=== PATIENT | female | born 1995 | race Caucasian/White ===

== ENCOUNTER 2017-02-16 12:24 | Emergency (ER) | payer BC ==
[2017-02-16 13:12] VITALS: BP 136/73
[2017-02-16] MEDS ORDERED: Ibuprofen TAB* 600 MG PO ONE (13:13)
--- NOTE | 2017-02-16 13:24 | UC ---
Throat Pain/Nasal Elliot HPI - HPI Summary HPI Summary: patient has had sore throat and left ear pain for the past 3 days, woke up with upset stomach and mid back pain today, has had chills and hot sweats. - History of Current Complaint Chief Complaint: UCGeneralIllness Stated Complaint: LEFT EAR PAIN, SORE THROAT Time Seen by Provider: 02/16/17 13:00 Hx Obtained From: Patient Hx Last Menstrual Period: 02/11/17 ?: No Onset/Duration: Sudden Onset, Lasting Days Severity: Moderate Associated Signs & Symptoms: Positive: Dysphagia, Sinus Discomfort - Allergies/Home Medications Allergies/Adverse Reactions: Allergies Allergy/AdvReac Type Severity Reaction Status Date / Time No Known Allergies Allergy Unverified 01/21/13 15:26 PMH/Surg Hx/FS Hx/Imm Hx Previously Healthy: Yes - Surgical History Surgical History: None Surgery Procedure, Year, and Place: pyloric stenosis surgery at 2 months old - Family History Known Family History: Negative: Cardiac Disease, Hypertension - Social History Alcohol Use: Rare Substance Use Type: None Smoking Status (MU): Current Some Day Smoker Review of Systems Constitutional: Chills, Fatigue Skin: Negative Eyes: Negative ENT: Sore Throat, Ear Ache, Nasal Discharge Respiratory: Cough Cardiovascular: Negative Gastrointestinal: Abdominal Pain - epigastric Genitourinary: Negative Motor: Negative Neurovascular: Negative Musculoskeletal: Myalgia - mid back Neurological: Negative Psychological: Negative Is Patient Immunocompromised?: No All Other Systems Reviewed And Are Negative: Yes Physical Exam Triage Information Reviewed: Yes Appearance: Well-Nourished, Ill-Appearing, Pain Distress Vital Signs: Initial Vital Signs Temp 99.6 F 02/16/17 13:08 Pulse 89 02/16/17 13:08 Resp 16 02/16/17 13:08 BP 136/73 02/16/17 13:08 Pulse Ox 100 02/16/17 13:08 Vital Signs Reviewed: Yes Eye Exam: Normal Eyes: Positive: Conjunctiva Clear ENT: Positive: Pharyngeal erythema, TM bulging - left, TM dull, TM red, Tonsillar exudate Dental Exam: Normal Neck exam: Normal Neck: Positive: Supple, Nontender, No Lymphadenopathy Respiratory Exam: Normal Respiratory: Positive: Chest non-tender, Lungs clear, Normal breath sounds Cardiovascular Exam: Normal Cardiovascular: Positive: RRR, No Murmur, Pulses Normal Abdominal Exam: Normal Bowel Sounds: Positive: Present Musculoskeletal Exam: Normal Musculoskeletal: Positive: Strength Intact, ROM Intact, No Edema Neurological Exam: Normal Psychological Exam: Normal Skin Exam: Normal Throat Pain/Nasal Course/Dx - Course Course Of Treatment: hx obtained, exam performed ,meds reviewed, left otitis media present, rapid strep and flu obtained per patient request. ibuprofen given for muscle pain. - Differential Dx/Diagnosis Differential Diagnosis/HQI/PQRI: Otitis Media, Pharyngitis, Sinusitis, URI Provider Diagnoses: left otitis media Discharge - Discharge Plan Condition: Stable Disposition: HOME Prescriptions: Amoxicillin PO (*) [Amoxicillin 875 MG (*)] 875 mg PO BID #20 tab Patient Education Materials: Otitis Media (ED) Forms: *Work Release Referrals: Non Staff,Doctor [Primary Care Provider] - Additional Instructions: 1. take the medication as prescribed. 2. Get plenty of rest and increase fluid intake 3. continue with 400 -600 mg of ibuprofen for pain/ fever. 4. follow up as needed.
== END 2017-02-16 13:33 | disposition home or self-care (01) ==
LOC: UCCORT 12:24
DX: H66.92 Otitis media, unspecified, left ear (principal); Z72.0 Tobacco use
CPT/HCPCS: 87502; 87651; 99202; A9270-GY; G0463

== ENCOUNTER 2017-03-22 11:14 | Emergency (ER) | payer BC ==
[2017-03-22 12:49] VITALS: BP 123/71
--- NOTE | 2017-03-22 13:53 | UC ---
UC General HPI - HPI Summary HPI Summary: right side of face and mouth/lip swollen since yesterday - took 2 25mg benadryl without relief. no new meds, foods, detergent. denies any other symptoms - no dental pain or earache at this time - History of Current Complaint Chief Complaint: UCGeneralIllness Stated Complaint: RED & SWOLLEN LIP AND FACE Time Seen by Provider: 03/22/17 13:46 Hx Obtained From: Patient, Family/Library Manager Hx Last Menstrual Period: 03/16/17 Onset/Duration: Sudden Onset Onset Severity: Mild Current Severity: Mild Pain Intensity: 0 Related Hx: Recent Illness - 2 years ago same thing happened on right side of face -used bendaryl and swelling went away not sure what caused it then - Allergy/Home Medications Allergies/Adverse Reactions: Allergies Allergy/AdvReac Type Severity Reaction Status Date / Time No Known Allergies Allergy Unverified 03/22/17 12:49 Home Medications: Home Medications Ibuprofen 600 03/22/17 [History] PMH/Surg Hx/FS Hx/Imm Hx Previously Healthy: Yes - Surgical History Surgical History: None Surgery Procedure, Year, and Place: pyloric stenosis surgery at 2 months old - Family History Known Family History: Positive: None Negative: Cardiac Disease, Hypertension - Social History Occupation: Student Lives: With Family Alcohol Use: Occasionally Substance Use Type: None Smoking Status (MU): Current Some Day Smoker Type: Cigarettes Review of Systems Constitutional: Negative Skin: Negative Eyes: Negative ENT: Negative, Other - swelling lip/face on right side of face Respiratory: Negative Cardiovascular: Negative Gastrointestinal: Negative Genitourinary: Negative Neurological: Negative Is Patient Immunocompromised?: No All Other Systems Reviewed And Are Negative: Yes Physical Exam Triage Information Reviewed: Yes Appearance: Well-Appearing Vital Signs: Initial Vital Signs Temp 98.9 F 03/22/17 12:41 Pulse 92 03/22/17 12:41 Resp 18 03/22/17 12:41 BP 123/71 03/22/17 12:41 Pulse Ox 100 03/22/17 12:41 Vital Signs Reviewed: Yes ENT: Positive: TM bulging, TM red - right side Dental Exam: Normal, Other - redness noted around last tooth up top on right side of mouth no drainage present - filling inside tooth intact Respiratory Exam: Normal Cardiovascular Exam: Normal Neurological Exam: Normal Psychological Exam: Normal Skin Exam: Normal Course/Dx - Course Course Of Treatment: use ibuprofen 400mg po q6 hours prn pain/fever. take abx as directed - discussed use and common side effects of med. continue benadryl prn for swelling as directed on box. f/u 1 week or sooner if symptoms not resolving - Differential Dx - Multi-Symptom Provider Diagnoses: otitis media - right ear Discharge - Discharge Plan Condition: Good Disposition: HOME Prescriptions: Azithromycin TAB* [Zithromax TAB (Z-MELQUIADES) 250 mg #6 tabs] 2 tab PO .TODAY, THEN 1 DAILY 5 Days #1 melquiades Patient Education Materials: Ear Infection (ED) Referrals: Non Staff,Doctor [Primary Care Provider] - [facility] [Provider Group] - 1 Week
== END 2017-03-22 14:10 | disposition home or self-care (01) ==
LOC: UCCORT 11:14
DX: H66.91 Otitis media, unspecified, right ear (principal); F17.210 Nicotine dependence, cigarettes, uncomplicated
CPT/HCPCS: 99212; G0463

== ENCOUNTER 2018-01-11 12:03 | Emergency (ER) | payer BC ==
[2018-01-11 13:02] VITALS: BP 128/77
--- NOTE | 2018-01-11 13:37 | UC ---
Ear Complaint HPI - HPI Summary HPI Summary: 22 year old female presents with left ear fullness and bleeding from ear. States last night her boyfriend accidentally poked the inside of her left ear with a zip tie causing immediate pain and bleeding. States bleeding subsided but has continued fullness of the ear. Denies fever, chills, hearing loss, or URI symptoms. - History of Current Complaint Chief Complaint: UCEar Stated Complaint: LEFT EAR PAIN Time Seen by Provider: 01/11/18 13:15 Hx Obtained From: Patient Hx Last Menstrual Period: 01/09/18 Onset/Duration: Sudden Onset Severity Currently: Mild Pain Intensity: 4 Aggravating Factors: Nothing Alleviating Factors: Nothing Associated Signs/Symptoms: Positive: Trauma to Ear - Allergies/Home Medications Allergies/Adverse Reactions: Allergies Allergy/AdvReac Type Severity Reaction Status Date / Time No Known Allergies Allergy Verified 01/11/18 13:02 PMH/Surg Hx/FS Hx/Imm Hx Previously Healthy: Yes Psychological History: Anxiety, Depression - Surgical History Surgical History: None Surgery Procedure, Year, and Place: 2-3 months old - Family History Known Family History: Positive: Non-Contributory - Social History Occupation: Employed Part-time Alcohol Use: Occasionally Substance Use Type: None Smoking Status (MU): Current Some Day Smoker Type: Cigarettes Review of Systems All Other Systems Reviewed And Are Negative: Yes Constitutional: Negative: Fever, Chills Eyes: Negative: Drainage, Eye Redness ENT: Positive: Other - See HPI. Negative: Sore Throat, Nasal Discharge, Sinus Congestion Respiratory: Negative: Cough Is Patient Immunocompromised?: No Physical Exam - Summary Physical Exam Summary: GENERAL APPEARANCE: Well developed, well nourished, alert and cooperative, and appears to be in no acute distress. HEAD: Atraumatic. normocephalic. EYES: conjunctiva clear. No discharge. EARS: Hearing grossly intact. Right external auditory canal normal. Right TM opaque with good cone of light. Left external auditory canal with dried blood and superficial laceration to floor of canal. No erythema or edema. TM intact, opaque, with good cone of light. NOSE: No nasal discharge. THROAT: Oral cavity and pharynx normal. No inflammation, swelling, exudate, or lesions. Teeth and gingiva in good general condition. NECK: Neck supple, non-tender without lymphadenopathy. CARDIAC: Normal S1 and S2. No S3, S4 or murmurs. Rhythm is regular. There is no peripheral edema, cyanosis or pallor. Extremities are warm and well perfused. Capillary refill is less than 2 seconds. LUNGS: Clear to auscultation and percussion without rales, rhonchi, wheezing or diminished breath sounds. SKIN: Skin normal color, texture and turgor with no lesions or eruptions. Triage Information Reviewed: Yes Vital Signs: Initial Vital Signs Temp 98.2 F 01/11/18 13:00 Pulse 69 01/11/18 13:00 Resp 20 01/11/18 13:00 BP 128/77 01/11/18 13:00 Pulse Ox 100 01/11/18 13:00 Vital Signs Reviewed: Yes Ear Complaint Course/Dx - Course Course Of Treatment: 22 year old female presents with left ear fullness and bleeding from ear. States last night her boyfriend accidentally poked the inside of her left ear with a zip tie causing immediate pain and bleeding. States bleeding subsided but has continued fullness of the ear. Denies fever, chills, hearing loss, or URI symptoms. Exam revealed dried blood in left ear canal with a superficial laceration to the floor of the external auditory canal. Will start cipro otic 1 drop twice a day for 7 days to prevent infection. She was given referral to ENT for follow up if symptoms do not improve. Warning symptoms reveiwed with patient. Verbalizes understanding and agrees with POC. - Differential Dx/Diagnosis Differential Diagnosis/HQI/PQRI: Otitis Externa, Otitis Media, Perforated TM Provider Diagnosis: Laceration of left ear canal Discharge - Sign-Out/Discharge Documenting (check all that apply): Patient Departure All imaging exams completed and their final reports reviewed: No Studies - Discharge Plan Condition: Stable Disposition: HOME Prescriptions: Ciprofloxacin HCl [Ciprofloxacin 0.2% EAR DROPS] 0.2 % OT BID 7 Days #1 obey Patient Education Materials: Otitis Externa (ED) Referrals: No Primary Care Phys,NOPCP [Primary Care Provider] - Danilo Quigley MD [Medical Doctor] - 7 Days (If no improvement in symptoms.) Additional Instructions: You have a small laceration (cut) inside the ear canal but the ear drum is not injured. Use ciprofloxacin otic 1 drop into the affected ear twice a day for 7 days. Avoid getting water into the ear. Do NOT put anything into the ear canal. Follow up with Dr. Quigley, ENT, in 1 week if symptoms do not improve. Call for any appointment. Seek immediate medical attention in the emergency room if you have worsen pain, loss of hearing, persistent bleeding from the ear, or any worsening of symptoms. - Billing Disposition and Condition Condition: STABLE Disposition: Home
== END 2018-01-11 13:48 | disposition home or self-care (01) ==
LOC: UCCORT 12:03
DX: S01.322A Laceration with foreign body of left ear, initial encounter (principal); W22.8XXA Striking against or struck by other objects, initial encounter; Y92.9 Unspecified place or not applicable; F17.210 Nicotine dependence, cigarettes, uncomplicated
CPT/HCPCS: 99212; G0463

== ENCOUNTER 2018-05-14 14:45 | Emergency (ER) | payer BC ==
[2018-05-14 15:15] VITALS: BP 138/92
--- NOTE | 2018-05-14 15:40 | UC ---
Cardiac HPI - HPI Summary HPI Summary: Patient has had on and off times of chest pressure. the latest episode was at 0400 this moring. she has hx of anxiety but states she has not been anxious about anything. she denies smoking. However, the room does smell like marajuana. she denies any illicit drug use. She does state she drinks a 2 liter of mountain dew every other day. the chest pain does resolve on her own, last about 5-15 minutes. - History of Current Complaint Chief Complaint: UCGeneralIllness Stated Complaint: CHEST PAIN Time Seen by Provider: 05/14/18 15:19 Hx Obtained From: Patient Hx Last Menstrual Period: 04/2018 Onset/Duration: Still Present Timing: Intermittent Episodes Lasting: - 5-15 min Initial Severity: Severe Current Severity: Severe Pain Intensity: 0 Chest Pain Location: Mid Sternal Character: Pressure/Squeezing Aggravating Factor(s): Caffeine Alleviating Factor(s): Spontaneous Resolution Associated Signs & Symptoms: Positive: Chest Pain, Dizziness - Allergy/Home Medications Allergies/Adverse Reactions: Allergies Allergy/AdvReac Type Severity Reaction Status Date / Time No Known Allergies Allergy Verified 05/14/18 15:09 Home Medications: Home Medications NK [No Home Medications Reported] 05/14/18 [History Confirmed 05/14/18] PMH/Surg Hx/FS Hx/Imm Hx Previously Healthy: Yes - Surgical History Surgical History: None Surgery Procedure, Year, and Place: as infant - Family History Known Family History: Positive: None, Non-Contributory Negative: Cardiac Disease, Hypertension - Social History Alcohol Use: Occasionally Substance Use Type: None Smoking Status (MU): Current Some Day Smoker Type: Cigarettes Review of Systems All Other Systems Reviewed And Are Negative: Yes Constitutional: Positive: Negative Skin: Positive: Negative Eyes: Positive: Negative ENT: Positive: Negative Respiratory: Positive: Negative Cardiovascular: Positive: Chest Pain - but not at this moment Gastrointestinal: Positive: Negative Genitourinary: Positive: Negative Motor: Positive: Negative Neurovascular: Positive: Negative Musculoskeletal: Positive: Negative Neurological: Positive: Negative Psychological: Positive: Negative Is Patient Immunocompromised?: No Physical Exam Triage Information Reviewed: Yes Appearance: Well-Appearing, No Pain Distress, Well-Nourished Vital Signs: Initial Vital Signs Temp 99.0 F 05/14/18 15:09 Pulse 78 04/04/19 15:09 Resp 16 05/14/18 15:09 BP 138/92 05/14/18 15:09 Pulse Ox 100 05/14/18 15:09 Vital Signs Reviewed: Yes Eye Exam: Normal ENT Exam: Normal Dental Exam: Normal Neck exam: Normal Respiratory Exam: Normal Respiratory: Positive: Chest non-tender, Lungs clear, Normal breath sounds Cardiovascular Exam: Normal Cardiovascular: Positive: RRR, No Murmur, Pulses Normal Abdominal Exam: Normal Abdomen Description: Positive: Nontender, No Organomegaly, Soft Bowel Sounds: Positive: Present Musculoskeletal Exam: Normal Neurological Exam: Normal Psychological Exam: Normal Skin Exam: Normal - Assessment/Plan Course Of Treatment: hx obtained, exam performed ,meds reviewed, patient currently not exhibiting symptoms. discussed possible triggers of the chest pain. recommend work up by her PCP and reporting to ER with the next episode. - Differential Diagnoses - Chest Pain Differential Diagnosis/HQI/PQRI: Angina, Pulmonary Embolism - Differential Diagnoses - Hypertension Differential Diagnosis/HQI PQRI: Drug Ingestion, Drug Withdrawal - Clinical Impression Provider Diagnosis: Sensation of chest pressure Discharge - Sign-Out/Discharge Documenting (check all that apply): Patient Departure All imaging exams completed and their final reports reviewed: No Studies - Discharge Plan Condition: Stable Disposition: HOME Patient Education Materials: Chest Pain (DC) Referrals: No Primary Care Phys,NOPCP [Primary Care Provider] - Additional Instructions: 1. at this time, everything looks good 2. I recommend that you make a follow up appointment with the [facility] to get a complete work up and possible cardiology work up if necessary 3. If you get this pain again, call 911. 4. Monitor your caffeine intake - Billing Disposition and Condition Condition: STABLE Disposition: Home
== END 2018-05-14 15:39 | disposition home or self-care (01) ==
LOC: UCCORT 14:45
DX: R07.89 Other chest pain (principal); R42 Dizziness and giddiness; F17.210 Nicotine dependence, cigarettes, uncomplicated
CPT/HCPCS: 99211; G0463

== ENCOUNTER 2018-12-12 12:29 | Emergency (ER) | payer BC ==
[2018-12-12 13:18] VITALS: BP 115/74
--- NOTE | 2018-12-12 14:50 | UC ---
Throat Pain/Nasal Elliot HPI - HPI Summary HPI Summary: 23-year-old female presents with one-week history of sore throat. States over the past 3 days she has developed a dry nonproductive cough. Associated with some mild nasal congestion and postnasal drip. Denies fever, chills, ear pain, dysphagia, chest pain, shortness of breath, abdominal pain, nausea, vomiting, or diarrhea. - History of Current Complaint Chief Complaint: UCRespiratory Stated Complaint: SORE THROAT Time Seen by Provider: 12/12/18 14:41 Hx Obtained From: Patient Hx Last Menstrual Period: 11/24/18 Pain Intensity: 5 - Allergies/Home Medications Allergies/Adverse Reactions: Allergies Allergy/AdvReac Type Severity Reaction Status Date / Time blush makeup Allergy Rash Uncoded 12/12/18 13:07 suave body wash with honey Allergy Rash and Uncoded 12/12/18 13:08 swelling Home Medications: Home Medications Aspirin [Aspirin Childrens 81 MG] 81 mg PO DAILY 12/12/18 [History Confirmed 03/31] PMH/Surg Hx/FS Hx/Imm Hx Previously Healthy: Yes - Surgical History Surgery Procedure, Year, and Place: as stomach - Family History Known Family History: Positive: Non-Contributory - Social History Occupation: Employed Full-time Lives: With Family Alcohol Use: Occasionally Substance Use Type: Excessive Caffeine Smoking Status (MU): Current Some Day Smoker Type: Cigarettes, eCigarettes Review of Systems All Other Systems Reviewed And Are Negative: Yes Constitutional: Negative: Fever, Chills Skin: Negative: Rash Eyes: Negative: Drainage, Eye Redness ENT: Positive: Sore Throat, Nasal Discharge, Sinus Congestion. Negative: Ear Ache, Sinus Pain/Tenderness Respiratory: Positive: Cough. Negative: Shortness Of Breath Cardiovascular: Negative: Palpitations, Chest Pain Gastrointestinal: Negative: Abdominal Pain, Vomiting, Diarrhea, Nausea Genitourinary: Positive: Negative Musculoskeletal: Positive: Negative Neurological: Positive: Negative Is Patient Immunocompromised?: No Physical Exam - Summary Physical Exam Summary: GENERAL APPEARANCE: Well developed, well nourished, alert and cooperative, and appears to be in no acute distress. EYES: Conjunctiva clear. No drainage. EARS: External auditory canals and tympanic membranes clear, hearing grossly intact. NOSE: Mild nasal discharge. No nasal discharge. THROAT:Mild pharyngeal erythema with post-nasal drip. No tonsilar inflammation, swelling, exudate, or lesions. Uvula midline. NECK: Neck supple, non-tender without lymphadenopathy. CARDIAC: Normal S1 and S2. No S3, S4 or murmurs. Rhythm is regular. There is no peripheral edema, cyanosis or pallor. Extremities are warm and well perfused. Capillary refill is less than 2 seconds. Peripheral pulses intact. LUNGS: Clear to auscultation without rales, rhonchi, wheezing or diminished breath sounds. Dry, non-productive cough. ABDOMEN: Positive bowel sounds. Soft, nondistended, nontender. No guarding or rebound. No masses or hepatosplenomegally. MUSKULOSKELETAL: ROM intact to all extremities. No joint erythema or tenderness. Normal muscular development. Normal gait. SKIN: Skin normal color, texture and turgor with no lesions or eruptions Triage Information Reviewed: Yes Vital Signs: Initial Vital Signs Temp 99.4 F 12/12/18 13:10 Pulse 78 12/12/18 13:10 Resp 20 12/12/18 13:10 BP 115/74 12/12/18 13:10 Pulse Ox 100 12/12/18 13:10 Vital Signs Reviewed: Yes Throat Pain/Nasal Course/Dx - Course Course Of Treatment: 23-year-old female presents with one-week history of sore throat. States over the past 3 days she has developed a dry nonproductive cough. Associated with some mild nasal congestion and postnasal drip. Denies fever, chills, ear pain, dysphagia, chest pain, shortness of breath, abdominal pain, nausea, vomiting, or diarrhea. Afebrile. Vital signs stable. Patient had mild nasal congestion , mild pharyngeal erythema with postnasal drip, no tonsillar swelling or exudate , no cervical lymphadenopathy, clear bilateral breath sounds, dry nonproductive cough, and otherwise unremarkable exam. Rapid strep test was negative. Recommending symptomatic treatment for viral upper respiratory infection including Tessalon Perles one Every 8 hours as needed for cough. She is to follow-up with her primary care provider in 3-5 days if symptoms are not improving. It is watery and its symptoms are reviewed with the patient. Verbalizes understanding and agrees with plan of care. - Differential Dx/Diagnosis Differential Diagnosis/HQI/PQRI: Influenza, Mononucleosis, Pharyngitis, Sinusitis, Tonsillitis, URI Provider Diagnosis: Viral URI with cough Discharge ED - Sign-Out/Discharge Documenting (check all that apply): Patient Departure All imaging exams completed and their final reports reviewed: No Studies - Discharge Plan Condition: Stable Disposition: HOME Prescriptions: Benzonatate CAP* [Tessalon 100 MG CAP*] 100 mg PO TID PRN #21 cap PRN Reason: Cough Patient Education Materials: Upper Respiratory Infection (ED) Referrals: No Primary Care Phys,NOPCP [Primary Care Provider] - Additional Instructions: Your history and exam are consistent with a viral upper respiratory infection. Viral infections do not respond to antibiotics and are limited to the treatment of symptoms. Viral infections typically run their course in 7-10 days. Drink plenty of fluids to avoid dehydration especially if you are running any fever. Use an over the counter decongestant such as Sudafed for any nasal congestion. Use Tessalon Perles 1 cap every 8 hours as needed for cough. Take over the counter acetaminophen (Tylenol) or ibuprofen (Advil, Motrin) according to directions as needed for pain or fever. Use salt water gargles several times a day if you have a sore throat. You may also use Chloraseptic spray or Cepacol lonzenges according to directions which contain a numbing medication and can provide some temporary relief from your sore throat. Follow up with your primary care provider in 3-5 days if symptoms persist. Seek immediate medical attention in the emergency room if you have fever greater than 100.5 F despite taking acetaminophen or ibuprofen, have chest pain , difficulty breathing, are unable to swallow, or have any worsening of symptoms. - Billing Disposition and Condition Condition: STABLE Disposition: Home
== END 2018-12-12 15:03 | disposition home or self-care (01) ==
LOC: UCCORT 12:29
DX: J06.9 Acute upper respiratory infection, unspecified (principal); R05 Cough; R09.82 Postnasal drip; F17.210 Nicotine dependence, cigarettes, uncomplicated; F17.290 Nicotine dependence, other tobacco product, uncomplicated; Z79.82 Long term (current) use of aspirin; Z91.09 Other allergy status, other than to drugs and biological substances
CPT/HCPCS: 87651; 99212; G0463